=== PATIENT | female | born 1990 | race Caucasian/White ===

== ENCOUNTER 2022-03-19 21:35 | Emergency (ER) | payer OTHER, SELFPAY ==
[2022-03-19 22:30] VITALS: BP 118/64; PULSE 74; RESP 18; TEMP 37.2; O2SAT 100; BMI 44.6
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
== END 2022-03-20 01:37 | disposition home or self-care (01) ==
LOC: HO.ED 03-20 01:34
PROVIDERS: Emergency Provider Student in an Organized Health Care Education/Training Program
DX: T24.202A Burn of second degree of unspecified site of left lower limb, except ankle and foot, initial encounter (principal); T24.201A Burn of second degree of unspecified site of right lower limb, except ankle and foot, initial encounter; T31.0 Burns involving less than 10% of body surface
CPT/HCPCS: 99282; 99283